=== PATIENT | male | born 1995 | race African-American/Black ===

== ENCOUNTER 2016-05-11 12:53 | Emergency (ER) | payer OTHER ==
[2016-05-11] MEDS ORDERED: NS 1,000 ML IV ONE (12:58)
--- NOTE | 2016-05-11 13:00 | EDPHY ---
H & P Source: Patient, EMS - Medical/Surgical History Hx Asthma: No Hx Chronic Respiratory Disease: No Hx Diabetes: No Hx Cardiac Disease: No Hx Renal Disease: No Hx Cirrhosis: Yes Hx Alcoholism: No Hx HIV/AIDS: No Hx Splenectomy or Spleen Trauma: No Other PMH: biliary atresia - Social History Smoking Status: Current every day smoker HPI/ROS: HPI CHIEF COMPLAINT: Alcohol intoxication HISTORY OF PRESENT ILLNESS: This patient 20-year-old male, presents emergency room by EMS after he was intoxicated with alcohol going to argument with his girlfriend. Patient states that he drank close 750 mL of liquor. Tells me he got upset after an argument with his girlfriend decided to drink. He became highly intoxicated. 911 was called. He does tell me he also fell while walking up the stairs with head strike. Unsure of LOC. Denies any complaints. Past Medical History: Biliary atresia Past Surgical History: Denies significant pertinent surgical history at this time Social History: Occasional alcohol use, denies drugs tobacco products Family History: Noncontributory ROS REVIEW OF SYSTEMS: A comprehensive 10 point review of systems is otherwise negative aside from elements mentioned in the history of present illness. Exam Constitutional intoxicated with alcohol, smells of alcohol, triage nursing summary reviewed, vital signs reviewed, awake/alert. Eyes normal conjunctivae and sclera, EOMI, horizontal beating nystagmus consistent with acute alcohol intoxication HENT head/neck: small hematoma midline forehead, neck no midline cervical spine pain normal inspection, atraumatic, moist mucus membranes, no epistaxis, neck supple/ no meningismus, no raccoon eyes. Respiratory clear to auscultation bilaterally, normal breath sounds, no respiratory distress, no wheezing. Cardiovascular rate normal, regular rhythm, no murmur, no edema, distal pulses normal. Gastrointestinal soft, non-tender, no rebound, no guarding, normal bowel sounds, no distension, no pulsatile mass. Genitourinary no CVA tenderness. Musculoskeletal no midline vertebral tenderness, full range of motion, no calf swelling, no tenderness of extremities, no meningismus, good pulses, neurovascularly intact. Skin pink, warm, & dry, no rash, skin atraumatic. Neurologic awake, alert and oriented x 3, AAOx3, moves all 4 extremities equally, motor intact, sensory intact, CN II-XII intact, normal cerebellar, normal vision, slurring his speech Psychiatric normal mood/affect. Heme/Lymph/Immune no lymphadenopathy. Differential Diagnosis: Includes but is not limited to in a particular order acute alcohol intoxication, closed head injury, intracranial bleed, skull fracture, epidural, subdural Medical Decision Making: Patient placed on monitor, patient had an IV established receive IV fluid bolus and will check a serum alcohol level, he will need a CT scan of his head to rule out significant trauma given his acute alcohol intoxication and fall and forehead hematoma. Re-evaluation: CT scan of the head without IV contrast. The results of the study are negative for acute traumatic injury. The study was read by Dr. Toledo I viewed the images myself on the PACS system. 1528: was brought to my attention by nursing staff that this patient on M1 hold for threats of suicidal ideation while highly intoxicated with alcohol. His alcohol level is noted to be over 278. Patient will need to be sober and then needs mental health evaluation for suicidal ideation. 2214: Patient signed over to Dr. Dutton. Patient is pending mental health evaluation. (Liam Cheek) Constitutional: Initial Vital Signs Temperature (C) 36.9 C 05/11/16 13:07 Heart Rate 71 05/11/16 13:07 Respiratory Rate 18 05/11/16 13:07 Blood Pressure 124/76 H 05/11/16 13:07 O2 Sat (%) 96 05/11/16 13:07 O2 Delivery Mode Room Air Allergies/Adverse Reactions: No Known Allergies Allergy (Unverified 03/29/16 00:36) Home Medications: Medication Instructions Recorded Famotidine [Pepcid 20 MG (*)] 20 mg PO BID #30 tab 03/29/16 Medical Decision Making ED Course/Re-evaluation: This patient was turned over to me at change of shift. I just had a long discussion with the patient and his girlfriend. The patient was very intoxicated and belligerent last night. He apparently made some suicidal statements. He states he has never been suicidal in his life and he has no desire to kill himself or hurt himself. States that he has been a little sad or depressed at times but not very often. He thinks he was just so intoxicated he did know what he was sane. His girlfriend who is in the room corroborates the story and states that he has never been depressed or suicidal and she has been with him for quite a while. In addition, she states that she is comfortable being with him today and he is comfortable dimitris for safety and has no interest whatsoever in hurt himself and he would like to go home. ( Reymundo Mao) - Data Points Laboratory Results: Laboratory Results 05/11/16 13:15 05/11/16 13:15 Medications Given: Discontinued Medications Sodium Chloride (Ns) 1,000 mls @ 0 mls/hr IV ONCE ONE PRN Reason: Wide Open Stop: 05/11/16 12:59 Last Admin: 05/11/16 13:15 Dose: 1,000 mls Departure - Departure Disposition: Home, Routine, Self-Care Clinical Impression: Alcohol intoxication Qualifiers: Complication of substance-induced condition: uncomplicated Qualifier Code: ( F10.120) Alcohol abuse with intoxication, uncomplicated Condition: Fair Instructions: Alcohol Intoxication (ED) Referrals: NONE *PRIMARY CARE P,. [Primary Care Provider] - As per Instructions
[2016-05-11 13:26] LABS: % IMMATURE GRANULYOCYTES 0.2 % (0.0-1.1); ABSOLUTE IMMATURE GRANULOCYTES 0.01 10^3/uL (0.00-0.10); ADD DIFF? NO; ADD MORPH? NO; ADD SCAN? NO; ATYPICAL LYMPHOCYTE FLAG 40 (0-99); FRAGMENT RBC FLAG 0 (0-99); HEMATOCRIT 48.4 % (40.0-51.0); HEMOGLOBIN 16.8 g/dL (13.7-17.5); LEFT SHIFT FLG 0 (0-99); LIPEMIA HEMOLYSIS FLAG 90 (0-99); MEAN CELL HEMOGLOBIN 27.5 pg (27.9-34.1); MEAN CELL HEMOGLOBIN CONCENTR. 34.7 g/dL (32.4-36.7); MEAN CELL VOLUME 79.1 fL (81.5-99.8); MEAN PLATELET VOLUME 10.4 fL (8.7-11.7); PLATELET CLUMPS FLAG 0 (0-99); PLATELET COUNT 66 10^3/uL (150-400); RED BLOOD CELL COUNT 6.12 10^6/uL (4.40-6.38); RED CELL DISTRIBUTION WIDTH 14.8 % (11.5-15.2)
--- NOTE | 2016-05-11 13:44 | CT ---
CT Head (Without Contrast) May 11, 2016 at 1313 hours. Indication: Trauma. Fall. Headache.. Technique: 5 mm images were obtained of the head without contrast. Multiplanar reformation was perfor med. Dose reduction techniques were utilized. Findings: No evidence for intracranial mass, hemorrhage, or infarct. The ventricles, sulci, and ciste rns are within normal limits for the patient's age. No evidence for an extra-axial fluid collection. No evidence for skull fracture. Paranasal sinuses are clear. Impression: Normal. Comment: Case was discussed results called to Dr. Liam Otero. May 11, 2016 at 1340 hours. .
[2016-05-11 13:49] LABS: ANION GAP 13 mEq/L (8-16); CALCIUM 8.8 mg/dL (8.5-10.4); CARBON DIOXIDE 23 mEq/l (22-31); CHLORIDE 111 mEq/L (97-110); CREATININE 0.7 mg/dL (0.7-1.3); ETHANOL SERUM 278 mg/dL (0-10); GLOMERULAR FILTRATION RATE > 60; GLUCOSE 94 mg/dL (70-100); POTASSIUM 3.6 mEq/L (3.5-5.2); SODIUM 147 mEq/L (134-144)
[2016-05-11 16:19] LABS: SALICYLATE < 1.0 mg/dL (2.0-20.0)
[2016-05-11 22:35] VITALS: RESP 18
[2016-05-12 07:40] VITALS: BP 116/72; PULSE 61; TEMP 98.2; O2SAT 97
== END 2016-05-12 07:33 | disposition home or self-care (01) ==
LOC: EDUNIT#
DX: F10.120 Alcohol abuse with intoxication, uncomplicated (principal); F17.200 Nicotine dependence, unspecified, uncomplicated
CPT/HCPCS: 80305; G0480

== ENCOUNTER 2017-02-18 02:20 | Emergency (ER) | payer OTHER ==
[2017-02-18] MEDS ORDERED: HYDROmorphONE/DILAUDID 1 MG/ML INJ IVP ONE (02:26)
--- NOTE | 2017-02-18 02:28 | EDPHY ---
H & P Time Seen by Provider: 02/18/17 02:20 HPI/ROS: Chief Complaint: Abdominal pain HPI: 21-year-old male being brought in from the [facility] for sudden onset of right upper quadrant abdominal pain. He has a history of biliary atresia as a child had surgical correction for this. He has only had 1 similar episode of pain like this in the past, approximately 7 months ago. At that time he was treated with pain medicines and discharged home. He has not had any nausea or vomiting. No fevers or chills. No diarrhea or constipation. Pain at worst is a 10/10. It started suddenly tonight. ROS: 10 point Review of Systems is negative except as noted in the HPI. PMH: Biliary atresia Social History: No smoking, occasional alcohol, occasional marijuana Family History: non-contributory Physical Exam: Gen: Awake, Alert, No Distress HEENT: Nose: no rhinorrhea Eyes: PERRLA, EOMI Mouth: Moist mucosa Neck: Supple, no JVD Chest: nontender, lungs clear to auscultation Heart: S1, S2 normal, no murmur Abd: Soft, non-tender, no guarding Back: no CVA tenderness, no midline tenderness Ext: no edema, non-tender Skin: no rash Neuro: CN II-XII intact, Sensation grossly intact, Strength 5/5 in bilateral upper and lower extremities - Medical/Surgical History Hx Asthma: No Hx Chronic Respiratory Disease: No Hx Diabetes: No Hx Cardiac Disease: No Hx Renal Disease: No Hx Cirrhosis: Yes Hx Alcoholism: No Hx HIV/AIDS: No Hx Splenectomy or Spleen Trauma: No Other PMH: biliary atresia - Social History Smoking Status: Current every day smoker Constitutional: Initial Vital Signs Temperature (C) 36.6 C 02/18/17 02:20 Heart Rate 80 02/18/17 02:20 Respiratory Rate 16 02/18/17 02:20 Blood Pressure 114/87 H 02/18/17 02:20 O2 Sat (%) 95 02/18/17 02:20 O2 Delivery Mode Room Air Allergies/Adverse Reactions: No Known Allergies Allergy (Unverified 02/18/17 02:35) Home Medications: Medication Instructions Recorded NK [No Known Home Meds] 02/18/17 Medical Decision Making - Diagnostics Imaging Results: CT scan shows marked splenomegaly with evidence of portal hypertension per Dr. Rasmussen. Imaging: Discussed imaging studies w/ call centre supervisor Radiologist ED Course/Re-evaluation: 21-year-old male with a history of biliary atresia presenting with right upper quadrant abdominal pain. He has soft benign abdomen. CT scan does show more splenomegaly with portal hypertension. I have reviewed his records in [facility] 0 in he does have a history of splenomegaly dating back to 2012. Patient is not currently under the care duplicator punch operator. He is feeling significantly improved after medications here. [facility] to [facility]. I have instructed him that is very important that he follow up with her duplicator punch operator regarding his CT scan findings today. He understands that this could represent some very serious liver disease and that he has a knee to follow-up. - Data Points Laboratory Results: Laboratory Results 02/18/17 02:35 02/18/17 02:35 02/18/17 02/18/17 02:35 02:35 WBC 5.69 10^3/uL 10^3/uL (3.80-9.50) RBC 5.79 10^6/uL 10^6/uL (4.40-6.38) Hgb 16.1 g/dL g/dL (13.7-17.5) Hct 45.9 % % (40.0-51.0) MCV 79.3 fL L fL (81.5-99.8) MCH 27.8 pg L pg (27.9-34.1) MCHC 35.1 g/dL g/dL (32.4-36.7) RDW 14.2 % % (11.5-15.2) Plt Count 64 10^3/uL L 10^3/uL (150-400) MPV 10.6 fL fL (8.7-11.7) Neut % (Auto) 46.6 % % (39.3-74.2) Lymph % (Auto) 41.7 % % (15.0-45.0) [place] % (Auto) 7.0 % % (4.5-13.0) Eos % (Auto) 4.2 % % (0.6-7.6) Baso % (Auto) 0.5 % % (0.3-1.7) Nucleat RBC Rel Count 0.0 % % (0.0-0.2) Absolute Neuts (auto) 2.65 10^3/uL 10^3/uL (1.70-6.50) Absolute Lymphs (auto) 2.37 10^3/uL 10^3/uL (1.00-3.00) Absolute Monos (auto) 0.40 10^3/uL 10^3/uL (0.30-0.80) Absolute Eos (auto) 0.24 10^3/uL 10^3/uL (0.03-0.40) Absolute Basos (auto) 0.03 10^3/uL 10^3/uL (0.02-0.10) Absolute Nucleated RBC 0.00 10^3/uL 10^3/uL (0-0.01) Immature Gran % 0.0 % % (0.0-1.1) Immature Gran # 0.00 10^3/uL 10^3/uL (0.00-0.10) Sodium 141 mEq/L mEq/L (134-144) Potassium 4.1 mEq/L mEq/L (3.5-5.2) Chloride 107 mEq/L mEq/L (97-110) Carbon Dioxide 21 mEq/l L mEq/l (22-31) Anion Gap 13 mEq/L mEq/L (8-16) BUN 7 mg/dL mg/dL (7-23) Creatinine 0.8 mg/dL mg/dL (0.7-1.3) Estimated GFR > 60 Glucose 78 mg/dL mg/dL (70-100) Calcium 9.2 mg/dL mg/dL (8.5-10.4) Total Bilirubin 1.7 mg/dL H mg/dL (0.1-1.4) AST 55 IU/L IU/L (17-59) ALT 68 IU/L IU/L (21-72) Alkaline Phosphatase 104 IU/L IU/L (38-126) Total Protein 7.2 g/dL g/dL (6.3-8.2) Albumin 4.2 g/dL g/dL (3.5-5.0) Lipase 166 IU/L IU/L (23-300) Medications Given: Discontinued Medications Hydromorphone HCl (Dilaudid) 0.5 mg IVP EDNOW ONE Stop: 02/18/17 02:27 Last Admin: 02/18/17 02:39 Dose: 0.5 mg Departure - Departure Disposition: Home, Routine, Self-Care Clinical Impression: Abdominal pain, Portal hypertension Condition: Good Instructions: Portal Hypertension (ED) Additional Instructions: Your CT scan today shows that there is a back up of blood flow through your liver and spleen. This could be potentially very dangerous for your liver. It is important that you follow up with a duplicator punch operator for further evaluation and care. I have given you name of a duplicator punch operator national account representative for follow-up. Return to the emergency depart for increasing abdominal pain, nausea , vomiting, fevers, chills, or any other concerns. Referrals: Carlos Gordon MD [Medical Doctor] - As per Instructions
[2017-02-18 02:38] VITALS: RESP 16; TEMP 97.9
[2017-02-18 02:45] LABS: ADD DIFF? NO; ADD MORPH? NO; ADD SCAN? NO; ATYPICAL LYMPHOCYTE FLAG 40 (0-99); FRAGMENT RBC FLAG 0 (0-99); HEMATOCRIT 45.9 % (40.0-51.0); HEMOGLOBIN 16.1 g/dL (13.7-17.5); LEFT SHIFT FLG 0 (0-99); LIPEMIA HEMOLYSIS FLAG 90 (0-99); MEAN CELL HEMOGLOBIN 27.8 pg (27.9-34.1); MEAN CELL HEMOGLOBIN CONCENTR. 35.1 g/dL (32.4-36.7); MEAN CELL VOLUME 79.3 fL (81.5-99.8); MEAN PLATELET VOLUME 10.6 fL (8.7-11.7); PLATELET CLUMPS FLAG 10 (0-99); PLATELET COUNT 64 10^3/uL (150-400); RED BLOOD CELL COUNT 5.79 10^6/uL (4.40-6.38); RED CELL DISTRIBUTION WIDTH 14.2 % (11.5-15.2)
[2017-02-18 02:57] LABS: ALANINE AMINOTRANSFERASE 68 IU/L (21-72); ALBUMIN 4.2 g/dL (3.5-5.0); ALKALINE PHOSPHATASE 104 IU/L (38-126); ANION GAP 13 mEq/L (8-16); ASPARTATE AMINOTRANSFERASE 55 IU/L (17-59); BILIRUBIN,TOTAL 1.7 mg/dL (0.1-1.4); CALCIUM 9.2 mg/dL (8.5-10.4); CARBON DIOXIDE 21 mEq/l (22-31); CHLORIDE 107 mEq/L (97-110); CREATININE 0.8 mg/dL (0.7-1.3); GLOMERULAR FILTRATION RATE > 60; GLUCOSE 78 mg/dL (70-100); POTASSIUM 4.1 mEq/L (3.5-5.2); SODIUM 141 mEq/L (134-144); TOTAL PROTEIN 7.2 g/dL (6.3-8.2)
[2017-02-18] MEDS ORDERED: IOPAMIDOL (ISOVUE-300) 100 ML BTL ONE (03:00)
[2017-02-18 04:25] VITALS: BP 131/74; PULSE 74; O2SAT 94
== END 2017-02-18 04:25 | disposition home or self-care (01) ==
LOC: EDUNIT#
DX: R10.9 Unspecified abdominal pain (principal); K76.6 Portal hypertension; F17.200 Nicotine dependence, unspecified, uncomplicated
CPT/HCPCS: 96374; J1170; Q9967

== ENCOUNTER 2017-02-26 00:18 | Emergency (ER) | payer SELFPAY ==
[2017-02-26 00:27] VITALS: RESP 16; TEMP 98.8
--- NOTE | 2017-02-26 00:33 | EDPHY ---
H & P Stated Complaint: c/o black tarry stool x 1 day HPI/ROS: HPI CHIEF COMPLAINT: Black tarry stool. HISTORY OF PRESENT ILLNESS: Patient is a 21-year-old male, history of portal hypertension, biliary atresia and liver cirrhosis presents emergency room with black tarry stool. He is not on any blood thinners. He denies any abdominal pain. Was recently here in the emergency room last week for abdominal pain and had a CT scan. Past Medical History: Biliary atresia, liver cirrhosis, portal hypertension Past Surgical History: Denies recent surgery Social History: Denies daily use drugs alcohol tobacco products. Family History: Noncontributory. ROS REVIEW OF SYSTEMS: A comprehensive 10 point review of systems is otherwise negative aside from elements mentioned in the history of present illness. Exam Constitutional triage nursing summary reviewed, vital signs reviewed, awake/ alert. Eyes normal conjunctivae and sclera, EOMI, PERRLA. HENT normal inspection, atraumatic, moist mucus membranes, no epistaxis, neck supple/ no meningismus, no raccoon eyes. Respiratory clear to auscultation bilaterally, normal breath sounds, no respiratory distress, no wheezing. Cardiovascular rate normal, regular rhythm, no murmur, no edema, distal pulses normal. Gastrointestinal soft, non-tender, no rebound, no guarding, normal bowel sounds, no distension, no pulsatile mass. Genitourinary no CVA tenderness. Musculoskeletal no midline vertebral tenderness, full range of motion, no calf swelling, no tenderness of extremities, no meningismus, good pulses, neurovascularly intact. Skin pink, warm, & dry, no rash, skin atraumatic. Neurologic awake, alert and oriented x 3, AAOx3, moves all 4 extremities equally, motor intact, sensory intact, CN II-XII intact, normal cerebellar, normal vision, normal speech. Psychiatric normal mood/affect. Heme/Lymph/Immune no lymphadenopathy. Differential Diagnosis: Includes but is not limited to in a particular order: Acute GI bleed, other cause of black tarry stool, anemia Medical Decision Making: Plan for this patient IV establishment blood draw, check occult stool, check H&H. Evaluate for acute possible GI bleed given liver history. Re-evaluation: 0148: This patient's blood work has been reviewed. Noted to be thrombocytopenic. However his stool specimen has no blood in it. There is no evidence of GI bleed here to. His H&H are stable. Vital signs are stable. I highly recommend to the patient that he follows up with Gastroenterology as he has a recent CT scan shows liver disease. History of biliary atresia and liver cirrhosis splenomegaly. And has thrombocytopenia. He is not low enough to have a transfusion but he needs close follow-up with a process development chemist. I highly recommend that he follows up with 1. Additionally understands return emergency room if he has any worsening symptoms includes abdominal pain, fever, vomiting blood in his stool. Source: Patient - Medical/Surgical History Hx Asthma: No Hx Chronic Respiratory Disease: No Hx Diabetes: No Hx Cardiac Disease: No Hx Renal Disease: No Hx Cirrhosis: Yes Hx Alcoholism: No Hx HIV/AIDS: No Hx Splenectomy or Spleen Trauma: No Other PMH: biliary atresia, portal hypertension, cirrhosis, abd surg - Social History Smoking Status: Current some day smoker Constitutional: Initial Vital Signs Temperature (C) 37.1 C 02/26/17 00:23 Heart Rate 89 02/26/17 00:23 Respiratory Rate 16 02/26/17 00:23 Blood Pressure 145/86 H 02/26/17 00:23 O2 Sat (%) 97 02/26/17 00:23 O2 Delivery Mode Room Air Allergies/Adverse Reactions: No Known Allergies Allergy (Verified 02/26/17 00:27) Home Medications: Medication Instructions Recorded NK [No Known Home Meds] 02/18/17 Medical Decision Making - Data Points Laboratory Results: Laboratory Results 02/26/17 01:02 02/26/17 01:02 02/26/17 02/26/17 02/26/17 01:39 01:39 01:09 WBC RBC Hgb Hct MCV MCH MCHC RDW Plt Count MPV Neut % (Auto) Lymph % (Auto) [place] % (Auto) Eos % (Auto) Baso % (Auto) Nucleat RBC Rel Count Absolute Neuts (auto) Absolute Lymphs (auto) Absolute Monos (auto) Absolute Eos (auto) Absolute Basos (auto) Absolute Nucleated RBC Immature Gran % Immature Gran # Platelet Estimate PT INR APTT VBG Lactic Acid Pending Sodium Potassium Chloride Carbon Dioxide Anion Gap BUN Creatinine Estimated GFR Glucose Calcium Total Bilirubin Conjugated Bilirubin Unconjugated Bilirubin AST ALT Alkaline Phosphatase Total Protein Albumin Lipase Urine Color Pending Urine Appearance Pending Urine pH Pending Ur Specific [place] Pending Urine Protein Pending Urine Ketones Pending Urine Blood Pending Urine Nitrate Pending Urine Bilirubin Pending Urine Urobilinogen Pending Ur Leukocyte Esterase Pending Urine Glucose Pending Stool Occult Bld Scrn NEGATIVE (NEGATIVE) 02/26/17 02/26/17 02/26/17 01:02 01:02 01:02 WBC 4.01 10^3/uL 10^3/uL (3.80-9.50) RBC 5.50 10^6/uL 10^6/uL (4.40-6.38) Hgb 15.1 g/dL g/dL (13.7-17.5) Hct 44.5 % % (40.0-51.0) MCV 80.9 fL L fL (81.5-99.8) MCH 27.5 pg L pg (27.9-34.1) MCHC 33.9 g/dL g/dL (32.4-36.7) RDW 14.5 % % (11.5-15.2) Plt Count 48 10^3/uL L 10^3/uL (150-400) MPV 12.1 fL H fL (8.7-11.7) Neut % (Auto) 62.5 % % (39.3-74.2) Lymph % (Auto) 26.4 % % (15.0-45.0) [place] % (Auto) 6.0 % % (4.5-13.0) Eos % (Auto) 4.2 % % (0.6-7.6) Baso % (Auto) 0.7 % % (0.3-1.7) Nucleat RBC Rel Count 0.0 % % (0.0-0.2) Absolute Neuts (auto) 2.50 10^3/uL 10^3/uL (1.70-6.50) Absolute Lymphs (auto) 1.06 10^3/uL 10^3/uL (1.00-3.00) Absolute Monos (auto) 0.24 10^3/uL L 10^3/uL (0.30-0.80) Absolute Eos (auto) 0.17 10^3/uL 10^3/uL (0.03-0.40) Absolute Basos (auto) 0.03 10^3/uL 10^3/uL (0.02-0.10) Absolute Nucleated RBC 0.00 10^3/uL 10^3/uL (0-0.01) Immature Gran % 0.2 % % (0.0-1.1) Immature Gran # 0.01 10^3/uL 10^3/uL (0.00-0.10) Platelet Estimate DECREASED L (ADEQ) PT 16.6 SEC H SEC (12.0-15.0) INR 1.34 H (0.83-1.16) APTT 30.9 SEC SEC (23.0-38.0) VBG Lactic Acid Sodium 142 mEq/L mEq/L (134-144) Potassium 3.8 mEq/L mEq/L (3.5-5.2) Chloride 106 mEq/L mEq/L (97-110) Carbon Dioxide 27 mEq/l mEq/l (22-31) Anion Gap 9 mEq/L mEq/L (8-16) BUN 10 mg/dL mg/dL (7-23) Creatinine 0.8 mg/dL mg/dL (0.7-1.3) Estimated GFR > 60 Glucose 88 mg/dL mg/dL (70-100) Calcium 9.0 mg/dL mg/dL (8.5-10.4) Total Bilirubin 1.3 mg/dL mg/dL (0.1-1.4) Conjugated Bilirubin 0.1 mg/dL mg/dL (0.0-0.5) Unconjugated Bilirubin 1.2 mg/dL H mg/dL (0.0-1.1) AST 53 IU/L IU/L (17-59) ALT 94 IU/L H IU/L (21-72) Alkaline Phosphatase 105 IU/L IU/L (38-126) Total Protein 7.0 g/dL g/dL (6.3-8.2) Albumin 3.8 g/dL g/dL (3.5-5.0) Lipase 89 IU/L IU/L (23-300) Urine Color Urine Appearance Urine pH Ur Specific [place] Urine Protein Urine Ketones Urine Blood Urine Nitrate Urine Bilirubin Urine Urobilinogen Ur Leukocyte Esterase Urine Glucose Stool Occult Bld Scrn Medications Given: Discontinued Medications Sodium Chloride (Ns) 1,000 mls @ 0 mls/hr IV EDNOW ONE; Wide Open PRN Reason: Protocol Stop: 02/26/17 00:55 Last Admin: 02/26/17 01:03 Dose: 1,000 mls Departure - Departure Disposition: Home, Routine, Self-Care Clinical Impression: Thrombocytopenia, Liver disease Condition: Good Instructions: Thrombocytopenia (ED) Additional Instructions: 1. I highly encouraged to follow up with Gastroenterology please make a follow- up appointment. 2. Return emergency room if he develops worsening symptoms includes abdominal pain, fever, vomiting blood in your stool. Referrals: NONE *PRIMARY CARE P,. [Primary Care Provider] - As per Instructions Sheron Velez MD [Medical Doctor] - As per Instructions
[2017-02-26] MEDS ORDERED: NS 1,000 ML IV ONE (00:54)
[2017-02-26 01:13] LABS: % IMMATURE GRANULYOCYTES 0.2 % (0.0-1.1); ABSOLUTE IMMATURE GRANULOCYTES 0.01 10^3/uL (0.00-0.10); ADD DIFF? NO; ADD MORPH? NO; ADD SCAN? NO; ATYPICAL LYMPHOCYTE FLAG 20 (0-99); FRAGMENT RBC FLAG 0 (0-99); HEMATOCRIT 44.5 % (40.0-51.0); HEMOGLOBIN 15.1 g/dL (13.7-17.5); LEFT SHIFT FLG 0 (0-99); LIPEMIA HEMOLYSIS FLAG 90 (0-99); MEAN CELL HEMOGLOBIN 27.5 pg (27.9-34.1); MEAN CELL HEMOGLOBIN CONCENTR. 33.9 g/dL (32.4-36.7); MEAN CELL VOLUME 80.9 fL (81.5-99.8); MEAN PLATELET VOLUME 12.1 fL (8.7-11.7); PLATELET CLUMPS FLAG 0 (0-99); RED CELL DISTRIBUTION WIDTH 14.5 % (11.5-15.2)
[2017-02-26 01:17] LABS: PLATELET COUNT 48 10^3/uL (150-400); PLATELET ESTIMATE DECREASED (ADEQ)
[2017-02-26 01:22] LABS: APTT 30.9 SEC (23.0-38.0); INR 1.34 (0.83-1.16); PROTIME(PATIENT) 16.6 SEC (12.0-15.0)
[2017-02-26 01:24] LABS: ALANINE AMINOTRANSFERASE 94 IU/L (21-72); ALBUMIN 3.8 g/dL (3.5-5.0); ALKALINE PHOSPHATASE 105 IU/L (38-126); ANION GAP 9 mEq/L (8-16); ASPARTATE AMINOTRANSFERASE 53 IU/L (17-59); BILIRUBIN,TOTAL 1.3 mg/dL (0.1-1.4); BILIRUBIN-CONJUGATED 0.1 mg/dL (0.0-0.5); BILIRUBIN-UNCONJUGATED 1.2 mg/dL (0.0-1.1); CARBON DIOXIDE 27 mEq/l (22-31); CHLORIDE 106 mEq/L (97-110); CREATININE 0.8 mg/dL (0.7-1.3); GLOMERULAR FILTRATION RATE > 60; GLUCOSE 88 mg/dL (70-100); POTASSIUM 3.8 mEq/L (3.5-5.2); SODIUM 142 mEq/L (134-144)
[2017-02-26 01:52] LABS: COLOR PALE YELLOW; LEUKOCYTE ESTERASE,URINE NEGATIVE (NEGATIVE); NITRITE,URINE NEGATIVE (NEGATIVE)
[2017-02-26 02:18] VITALS: BP 132/76; PULSE 72; O2SAT 98
== END 2017-02-26 02:14 | disposition home or self-care (01) ==
DX: D69.6 Thrombocytopenia, unspecified (principal); K76.9 Liver disease, unspecified; F17.200 Nicotine dependence, unspecified, uncomplicated; E86.9 Volume depletion, unspecified